=== PATIENT | female | born 1975 | race Caucasian/White ===

== ENCOUNTER 2016-08-09 18:13 | Emergency (ER) | payer BC ==
[~2016-08-09] VITALS: Ht 157.5 cm; Wt 88.5 kg
[~2016-08-09 18:13] MED LIST: ALBU8.5H8 INH; BECL8.7A5 INH; DEXL60CA3 PO; DULO60CA41 PO; HYDR-4100 PO; METH25VI29 IM; PRED10TA PO
--- NOTE | 2016-08-09 18:13 | NUR ---
Patient to ER bed 8 to gown for evaluation. Side rails up. Report given to RN.
[2016-08-09 18:15] VITALS: BP 122/71; PULSE 100; RESP 20; TEMP 98.1; O2SAT 98
[2016-08-09] MEDS ORDERED: fentaNYL CITRATE/PF 100 MCG/2 ML AMP IM ONE (19:00)
[2016-08-09] MEDS ORDERED: IPRATROPIUM/ALBUTEROL SULFATE 3 ML AMPUL.NEB INH ONE (19:00)
[2016-08-09] MEDS ORDERED: ONDANSETRON HCL 4 MG/2 ML VIAL IM ONE (19:00)
--- NOTE | 2016-08-09 19:05 | NUR ---
Pt states that she has been body aches, SOB, vomited all day, and lung congestion. Pt has bilateral wheeze in all lobes. Sating 97% on RA. Will continue to monitor. No other injuries or complaints mentioned/noted.
--- NOTE | 2016-08-09 19:35 | NUR ---
Pt states she is still SOB. Dr. Shelley made aware and ordered another breathing treatment.
[2016-08-09] MEDS ORDERED: IPRATROPIUM BROM 0.5 MG/2.5 ML VIAL.NEB (ATROVENT) IH ONE (20:30)
[2016-08-09] MEDS ORDERED: LevALBUTEROL HCL 1.25 MG/0.5 ML *CONC.* VIAL.NEB (XOPENEX CONC.) INH ONE (20:30)
[2016-08-09 20:45] VITALS: BP 114/66; PULSE 86; RESP 20; TEMP 98.1; O2SAT 100
--- NOTE | 2016-08-09 20:45 | NUR ---
Patient given written and verbal discharge instructions and verbalizes understanding. ER MD discussed with patient the results and treatment provided. Patient in stable condition. ID arm band removed. Rx of [place] and Zofran given. Patient educated on pain management and to follow up with PMD. Pain Scale 4/10. Opportunity for questions provided and answered.
== END 2016-08-09 20:45 | disposition home or self-care (01) ==
LOC: SED 18:13
DX: J45.901 Unspecified asthma with (acute) exacerbation (principal); A08.4 Viral intestinal infection, unspecified; Z88.5 Allergy status to narcotic agent; Z88.1 Allergy status to other antibiotic agents
CPT/HCPCS: 94640; 96372; 99284; J2405; J3010; J7030

== ENCOUNTER 2016-12-08 10:33 | Inpatient (IN) | payer BC, MEDICAID ==
[~2016-12-08] VITALS: Ht 157.5 cm; Wt 86.2 kg
[2016-12-08 10:50] VITALS: BP_SYST 107
[2016-12-08] MEDS ORDERED: NACL 0.9% 1,000 ML IV ONE (11:16)
[2016-12-08 11:31] LABS: BILIRUBIN,URINE NEGATIVE (NEGATIVE); BLOOD, URINE NEGATIVE (NEGATIVE); CLARITY/URINE CLEAR (CLEAR); COLOR,URINE YELLOW (YELLOW); GLUCOSE,URINE NEGATIVE (NEGATIVE); KETONES,URINE NEGATIVE (NEGATIVE); LEUKOCYTE ESTERASE ,URINE NEGATIVE (NEGATIVE); NITRITE, URINE NEGATIVE (NEGATIVE); PH,URINE 5.5 (5.0-8.0); PROTEIN URINE NEGATIVE (NEGATIVE); UROBILINOGEN,URINE 0.2 (0.2-1.0)
[2016-12-08 11:40] LABS: BASOPHILS % (AUTO) 0.4 % (0.0-2.0); EOSINOPHILS # (AUTO) 0.2 K/uL (0.0-0.4); EOSINOPHILS % (AUTO) 1.8 % (0.0-4.0); HEMATOCRIT 27.2 % (36-48); HEMOGLOBIN 8.3 g/dL (12.0-16.0); LYMPHOCYTES # (AUTO) 2.1 K/uL (1.0-5.5); LYMPHOCYTES % (AUTO) 22.5 % (20.5-51.5); MEAN CORPUSCULAR HEMOGLOBIN 21 pg (27-31); MEAN CORPUSCULAR HGB CONC 30 % (32-36); MEAN CORPUSCULAR VOLUME 70 fL (79.0-98.0); MONOCYTES # (AUTO) 0.6 K/uL (0.0-1.0); NEUTROPHILS # (AUTO) 6.3 K/uL (1.8-7.7); NEUTROPHILS % (AUTO) 68.3 % (40.0-70.0); PLATELET COUNT (AUTO) 406 K/uL (130-430); RED BLOOD CELL COUNT(AUTO) 3.92 MIL/uL (4.2-6.2); RED CELL DISTRIBUTION WIDTH 17.3 % (9.0-15.0); WHITE BLOOD COUNT (AUTO) 9.2 K/uL (4.8-10.8)
[2016-12-08 11:59] LABS: INR 0.9 (0.8-1.2); PROTHROMBIN TIME 9.7 SECS (9.5-12.5)
[2016-12-08 12:02] LABS: ALBUMIN 3.4 g/dL (3.4-4.8); CALCIUM 8.4 mg/dL (8.4-11.0); CREATININE 0.45 mg/dL (0.55-1.30); POTASSIUM 3.9 mmol/L (3.5-5.1); TOTAL BILIRUBIN 0.2 mg/dL (0.0-1.0); TOTAL PROTEIN, SERUM 7.4 g/dL (6.4-8.3)
[2016-12-08] MEDS ORDERED: ONDANSETRON HCL 4 MG/2 ML VIAL IVP ONE (12:45)
[2016-12-08] MEDS ORDERED: MORPHINE 2 MG/ML INJ. SYRINGE IVP ONE (12:45)
[2016-12-08] MEDS ORDERED: methotrexate SQ (13:35)
[2016-12-08] MEDS ORDERED: METHOT (13:35)
[2016-12-08] MEDS ORDERED: ALPR1TAB2 PO (13:35)
[2016-12-08] MEDS ORDERED: HYDR-4100 PO (13:35)
[2016-12-08] MEDS ORDERED: OXYC10TA71 PO (13:59)
[2016-12-08] MEDS ORDERED: ACETAMINOPHEN 325 MG TABLET PO PRN (14:00)
[2016-12-08] MEDS: D5NS 1,000 ML IV SCH (14:00)
[2016-12-08] MEDS ORDERED: METHOTREXATE IM SCH (14:00)
[2016-12-08] MEDS ORDERED: POTASSIUM CHLORIDE 10 MEQ TAB.PRT.SR PO PRN (14:00)
[2016-12-08] MEDS ORDERED: ZOLPIDEM TARTRATE 5 MG TABLET PO PRN (14:00)
[2016-12-08] MEDS ORDERED: ALBUTEROL MDI INHALATION 8 GM INH INH PRN (14:00)
[2016-12-08] MEDS ORDERED: MAGNESIUM SULFATE 50 ML IV PRN (14:00)
[2016-12-08] MEDS ORDERED: HYDROcodone/ACETAMIN 10-325 MG TAB PO PRN ×2 (14:00)
[2016-12-08] MEDS ORDERED: DOCUSATE SODIUM 100 MG CAPSULE PO PRN (14:00)
[2016-12-08] MEDS ORDERED: LORazepam 2 MG/ML VIAL IVP PRN (14:00)
[2016-12-08 14:10] VITALS: BP_SYST 103
[2016-12-08] MEDS ORDERED: ALBUTEROL SULFATE (PRN) 2.5 MG/3 ML VIAL.NEB INH (16:45)
[2016-12-08 16:56] VITALS: BP_SYST 112
[2016-12-08 17:02] VITALS: BP_SYST 112
[2016-12-08] MEDS: MORPHINE 2 MG/ML INJ. SYRINGE IVP PRN ×2 (17:07→22:04)
[2016-12-08 20:10] VITALS: BP_SYST 120
[2016-12-08] MEDS ORDERED: DIATR MEGLU/DIATRIZ SOD 30 ML SOLUTION PO ONE (20:36)
[2016-12-08] MEDS ORDERED: BECLOMETHASONE INH SCH (21:00)
[2016-12-08] MEDS: FERROUS SULFATE 325 MG TABLET.DR PO SCH (22:03)
[2016-12-08] MEDS: ONDANSETRON HCL 4 MG/2 ML VIAL IVP PRN (22:58)
[2016-12-09 00:27] VITALS: BP_SYST 107
[2016-12-09 03:17] VITALS: BP_SYST 104
[2016-12-09] MEDS: ONDANSETRON HCL 4 MG/2 ML VIAL IVP PRN ×2 (05:37→11:12)
[2016-12-09] MEDS: MORPHINE 2 MG/ML INJ. SYRINGE IVP PRN ×2 (05:38→11:13)
[2016-12-09] MEDS: D5NS 1,000 ML IV SCH (05:44)
[2016-12-09 06:32] LABS: BASOPHILS % (AUTO) 0.5 % (0.0-2.0); EOSINOPHILS # (AUTO) 0.2 K/uL (0.0-0.4); EOSINOPHILS % (AUTO) 2.8 % (0.0-4.0); HEMATOCRIT 26.5 % (36-48); HEMOGLOBIN 7.9 g/dL (12.0-16.0); LYMPHOCYTES # (AUTO) 2.1 K/uL (1.0-5.5); LYMPHOCYTES % (AUTO) 26.7 % (20.5-51.5); MEAN CORPUSCULAR HEMOGLOBIN 21 pg (27-31); MEAN CORPUSCULAR HGB CONC 30 % (32-36); MEAN CORPUSCULAR VOLUME 70 fL (79.0-98.0); MONOCYTES # (AUTO) 0.6 K/uL (0.0-1.0); MONOCYTES % (AUTO) 7.3 % (1.7-9.3); NEUTROPHILS # (AUTO) 5.1 K/uL (1.8-7.7); NEUTROPHILS % (AUTO) 62.7 % (40.0-70.0); PLATELET COUNT (AUTO) 399 K/uL (130-430); RED BLOOD CELL COUNT(AUTO) 3.78 MIL/uL (4.2-6.2)
[2016-12-09 06:50] LABS: CALCIUM 8.3 mg/dL (8.4-11.0); CREATININE 0.49 mg/dL (0.55-1.30); POTASSIUM 3.8 mmol/L (3.5-5.1)
[2016-12-09 07:00] LABS: RED CELL DISTRIBUTION WIDTH 17.1 % (9.0-15.0)
[2016-12-09 08:27] VITALS: BP_SYST 95
[2016-12-09] MEDS: FERROUS SULFATE 325 MG TABLET.DR PO SCH (09:00)
[2016-12-09] MEDS ORDERED: DULoxetine HCL 30 MG CAPSULE.DR (CYMBALTA) PO SCH (09:00)
[2016-12-09] MEDS ORDERED: FLUTICASONE FUROATE 200 MCG BLST.W.DEV INH SCH (09:00)
[2016-12-09] MEDS ORDERED: PREDNISONE 10 MG TABLET PO SCH (09:00)
[2016-12-09 12:10] VITALS: BP_SYST 97
[2016-12-09 16:02] VITALS: BP_SYST 100
[2016-12-09] MEDS ORDERED: metroNIDAZOLE 500 mg/NS 100 ML IV SCH (22:00)
== END 2016-12-09 16:00 | disposition left against medical advice (07) | DRG 245 ==
LOC: SED 10:33 → SMU 13:24
PROVIDERS: ADMIT General Practice; ATTEND General Practice
DX: K50.90 Crohn's disease, unspecified, without complications (principal); F11.20 Opioid dependence, uncomplicated; D50.9 Iron deficiency anemia, unspecified; E11.9 Type 2 diabetes mellitus without complications; E66.9 Obesity, unspecified; G89.4 Chronic pain syndrome; M06.9 Rheumatoid arthritis, unspecified; Z53.21 Procedure and treatment not carried out due to patient leaving prior to being seen by health care provider; M79.7 Fibromyalgia; Z79.899 Other long term (current) drug therapy; Z88.1 Allergy status to other antibiotic agents; Z88.8 Allergy status to other drugs, medicaments and biological substances; Z68.34 Body mass index [BMI] 34.0-34.9, adult
CPT/HCPCS: 36415; 80048; 80053; 81003; 82150-TC; 83690-TC; 83735-TC; 84703; 85025; 85610-TC; 85730-TC; 96361; 96374; 96375; 99285; J2270; J2405; J3490; J7042; J7512; Q9964

== ENCOUNTER 2017-05-31 06:18 | Emergency (ER) | payer MEDICAID ==
[~2017-05-31] VITALS: Ht 157.5 cm; Wt 82.1 kg
[~2017-05-31 06:18] MED LIST changes: +ALPR1TAB2 PO; +METHOT; +OXYC10TA71 PO; +methotrexate SQ
[2017-05-31 07:16] VITALS: BP_SYST 151
[2017-05-31 08:19] LABS: BILIRUBIN,URINE NEGATIVE (NEGATIVE); BLOOD, URINE 3+ (NEGATIVE); CLARITY/URINE CLOUDY (CLEAR); COLOR,URINE YELLOW (YELLOW); GLUCOSE,URINE NEGATIVE (NEGATIVE); KETONES,URINE TRACE (NEGATIVE); LEUKOCYTE ESTERASE ,URINE 3+ (NEGATIVE); NITRITE, URINE NEGATIVE (NEGATIVE); PROTEIN URINE NEGATIVE (NEGATIVE); UROBILINOGEN,URINE 0.2 (0.2-1.0)
[2017-05-31 08:27] LABS: BASOPHILS % (AUTO) 0.5 % (0.0-2.0); EOSINOPHILS # (AUTO) 0.1 K/uL (0.0-0.4); EOSINOPHILS % (AUTO) 2.4 % (0.0-4.0); HEMATOCRIT 33.2 % (36-48); HEMOGLOBIN 10.7 g/dL (12.0-16.0); LYMPHOCYTES % (AUTO) 45.2 % (20.5-51.5); MEAN CORPUSCULAR HEMOGLOBIN 26 pg (27-31); MEAN CORPUSCULAR HGB CONC 32 % (32-36); MEAN CORPUSCULAR VOLUME 81 fL (79.0-98.0); MONOCYTES # (AUTO) 0.3 K/uL (0.0-1.0); MONOCYTES % (AUTO) 6.5 % (1.7-9.3); NEUTROPHILS # (AUTO) 2.1 K/uL (1.8-7.7); NEUTROPHILS % (AUTO) 45.4 % (40.0-70.0); PLATELET COUNT (AUTO) 309 K/uL (130-430); RED BLOOD CELL COUNT(AUTO) 4.11 MIL/uL (4.2-6.2); RED CELL DISTRIBUTION WIDTH 18.6 % (9.0-15.0); WHITE BLOOD COUNT (AUTO) 4.5 K/uL (4.8-10.8)
[2017-05-31 08:43] LABS: CALCIUM 8.8 mg/dL (8.4-11.0); CREATININE 0.61 mg/dL (0.55-1.30); POTASSIUM 3.7 mmol/L (3.5-5.1)
--- NOTE | 2017-05-31 08:43 | NUR ---
Patient to ER bed 6 to gown for evaluation. Side rails up. Report given to Sabas DERAS.
[2017-05-31 08:50] LABS: ALBUMIN 3.6 g/dL (3.4-4.8); TOTAL BILIRUBIN 0.4 mg/dL (0.0-1.0)
--- NOTE | 2017-05-31 08:50 | NUR ---
Pt ambulated into ED c/o flu-like symptoms x3days. Pt states she has had cough, congestion, diarrhea, nasuea, dry heaving. bodyaches, chills. Pt laying in position on R side, shaking, blanket provided. No other injuries/complaints per pt/noted. Will continue to monitor. Addendum: 05/31/17 at 0900 by [email or web address] Pt reports having new onset 8/10 abd pain since this morning.
--- NOTE | 2017-05-31 09:00 | NUR ---
ER Dr. Brito at bedside examining patient.
[2017-05-31] MEDS: methylPREDNISolone SOD SUCC/PF 62.5 MG/ML VIAL IVP ONE (09:21)
[2017-05-31] MEDS ORDERED: MORPHINE SULFATE 10 MG/ML VIAL ONE (09:28)
[2017-05-31] MEDS: NACL 0.9% 1,000 ML IV ONE (09:35)
[2017-05-31] MEDS: ONDANSETRON HCL 4 MG/2 ML VIAL IVP ONE (09:35)
--- NOTE | 2017-05-31 09:35 | NUR ---
Medication administered. Pt tolerated well. No adverse reactions noted.
[2017-05-31] MEDS: MORPHINE 4 MG/ML INJ. SYRINGE IVP ONE (09:37)
[2017-05-31 09:55] LABS: BACTERIA,URINE MANY /HPF (None Seen); MUCUS,URINE 1+ /LPF (None Seen)
--- NOTE | 2017-05-31 10:20 | NUR ---
IV fluids discontinued. Pt tolerated well. No adverse reactions noted. Addendum: 06/17/17 at 1146 by [email or web address] Late entry
--- NOTE | 2017-05-31 10:24 | NUR ---
Patient given written and verbal discharge instructions and verbalizes understanding. ER MD Brito discussed with patient the results and treatment provided. Patient in stable condition. ID arm band removed. IV catheter removed intact and dressing applied, no active bleeding. Rx of Macrodantin given. Patient educated on pain management and to follow up with PMD. Pain Scale 0. Opportunity for questions provided and answered.
[2017-05-31 10:25] VITALS: BP_SYST 148
== END 2017-05-31 10:25 | disposition home or self-care (01) ==
LOC: SED 06:18
DX: K50.90 Crohn's disease, unspecified, without complications (principal); N39.0 Urinary tract infection, site not specified; J44.9 Chronic obstructive pulmonary disease, unspecified; M06.9 Rheumatoid arthritis, unspecified; Z90.49 Acquired absence of other specified parts of digestive tract; Z88.5 Allergy status to narcotic agent; Z88.8 Allergy status to other drugs, medicaments and biological substances
CPT/HCPCS: 36415; 80053; 81000; 81025; 83690; 85025; 87086; 96361; 96374; 96375; 99284; J2270; J2405; J2930; J7030

== ENCOUNTER 2017-09-19 11:20 | Outpatient (CLI) | payer BC | END 2017-09-19 19:55 | disposition home or self-care (01) | LOC: SRD 11:20 | PROVIDERS: ATTEND Internal Medicine | DX: Z01.818 Encounter for other preprocedural examination (principal); M06.9 Rheumatoid arthritis, unspecified; J44.9 Chronic obstructive pulmonary disease, unspecified; E11.9 Type 2 diabetes mellitus without complications; Z79.899 Other long term (current) drug therapy; Z87.891 Personal history of nicotine dependence | CPT/HCPCS: 71046-TC ==

== ENCOUNTER 2019-02-01 11:28 | Inpatient (IN) | payer OTHER, MEDICAID ==
[~2019-02-01] VITALS: Ht 157.5 cm; Wt 70.8 kg
[2019-02-01 11:28] VITALS: BP_SYST 125
[~2019-02-01 11:28] MED LIST changes: -DEXL60CA3 PO; +DEXL60CA4 PO; +OXYC10TA56 PO; -OXYC10TA71 PO
--- NOTE | 2019-02-01 11:28 | NUR ---
BROUGHT BACK TO BED #8 AND TRIAGED. REPORT GIVEN TO DELL
--- NOTE | 2019-02-01 11:30 | NUR ---
Pt brought by self, A&Ox4, pt presents to ER with bilateral leg pain and weakness, pt states she was told by yardage control operator 2 days ago her H&H was low,no N/V noted, denies chest pain ,pt is afebrile, VSS, respirations even and unlabored, pt denies bleeding, will continue to monitor.
--- NOTE | 2019-02-01 11:45 | NUR ---
Dr Pizano at bedside examining patient
[2019-02-01] MEDS ORDERED: MORPHINE 2 MG/ML INJ. SYRINGE IVP ONE (12:15)
[2019-02-01] MEDS ORDERED: NACL 0.9% 1,000 ML IV ONE ×2 (12:15→13:45)
[2019-02-01 12:32] LABS: BASOPHILS % (AUTO) 0.5 % (0.0-2.0); EOSINOPHILS # (AUTO) 0.1 K/uL (0.0-0.4); EOSINOPHILS % (AUTO) 1.3 % (0.0-4.0); HEMATOCRIT 29.5 % (36-48); HEMOGLOBIN 9.1 g/dL (12.0-16.0); LYMPHOCYTES # (AUTO) 0.7 K/uL (1.0-5.5); MEAN CORPUSCULAR HEMOGLOBIN 22 pg (27-31); MEAN CORPUSCULAR HGB CONC 31 % (32-36); MEAN CORPUSCULAR VOLUME 72 fL (79.0-98.0); MONOCYTES # (AUTO) 0.4 K/uL (0.0-1.0); MONOCYTES % (AUTO) 7.2 % (1.7-9.3); NEUTROPHILS # (AUTO) 4.9 K/uL (1.8-7.7); PLATELET COUNT (AUTO) 355 K/uL (130-430); RED CELL DISTRIBUTION WIDTH 17.2 % (9.0-15.0); WHITE BLOOD COUNT (AUTO) 6.1 K/uL (4.8-10.8)
[2019-02-01 13:00] LABS: CALCIUM 8.3 mg/dL (8.4-11.0); CREATININE 0.74 mg/dL (0.55-1.30); POTASSIUM 3.6 mmol/L (3.5-5.1)
[2019-02-01 13:03] LABS: PROTHROMBIN TIME 9.9 SECS (9.5-12.5)
[2019-02-01 13:15] LABS: ALBUMIN 3.3 g/dL (3.4-4.8); TOTAL BILIRUBIN 0.1 mg/dL (0.0-1.0)
[2019-02-01 13:44] LABS: BILIRUBIN,URINE NEGATIVE (NEGATIVE); BLOOD, URINE 3+ (NEGATIVE); CLARITY/URINE CLOUDY (CLEAR); COLOR,URINE YELLOW (YELLOW); GLUCOSE,URINE 3+ (NEGATIVE); KETONES,URINE NEGATIVE (NEGATIVE); LEUKOCYTE ESTERASE ,URINE NEGATIVE (NEGATIVE); NITRITE, URINE NEGATIVE (NEGATIVE); PH,URINE 5.5 (5.0-8.0); PROTEIN URINE 1+ (NEGATIVE); UROBILINOGEN,URINE 0.2 (0.2-1.0)
[2019-02-01] MEDS ORDERED: cefTRIAXone 1 GM IVPB PREMIX 50 ML IV ONE (13:45)
[2019-02-01 14:02] LABS: BACTERIA,URINE FEW /HPF (None Seen); RBC,URINE >100 /HPF (0-3); WBC,URINE 0-3 /HPF (0-3)
[2019-02-01 14:03] LABS: MUCUS,URINE None Seen /LPF (None Seen)
--- NOTE | 2019-02-01 14:24 | NUR ---
[place] of care received, pt A&Ox4, VSS, respirations even and unlabored, no N/V noted, cap refill <3.
[2019-02-01] MEDS ORDERED: GABA300S PO (15:17)
--- NOTE | 2019-02-01 15:18 | NUR ---
Medication reconciliation completed with information provided by Patient. Any prior medication reconciliation on file was reviewed and corrected.
--- NOTE | 2019-02-01 15:25 | NUR ---
Patient will be admitted to care of Dr Reeves. Admitted to medsurg unit. Will go to room 124a . Belongings list completed. Summary report printed. Report will be given at bedside.
[2019-02-01 15:40] VITALS: BP_SYST 115
--- NOTE | 2019-02-01 15:40 | NUR ---
Admission notes: Received pt from Marlo, pt is aaox4, with diagnosis of Possible UTI, vitals wnl, no fever, safety precaution in place, bed alarm on ,call light in reach, pt encouraged to call for assist and pain meds and any concerns. will endorse to Nurse Durham.
--- NOTE | 2019-02-01 15:45 | NUR ---
PATIENT AAOX 4. LUNGS ARE CLEAR. BREATHING EVEN AND UNLABORED. VERBALIZED HAS PAIN ON GENERALIZED PAIN. HAS SALINE RT ARM #20. PATENT/DRY. ABDOMEN SOFT AND NON DISTENDED. VERBALIZED HAD BOWEL MOVEMENT 01/31/19. BED IN LOW POSITION, ALARMED AND LOCKED. CALL LIGHTS WITHIN REACH. INSTRUCTED TO CALL FOR ASSISTANCE. AND TO INFORMED DR WOOD FOR PAIN MEDICATION.
[2019-02-01 15:50] VITALS: BP_SYST 115
[2019-02-01] MEDS ORDERED: LEVO150T PO (16:32)
--- NOTE | 2019-02-01 17:35 | NUR ---
DR WOOD CAME AND EVALUATE THE PATIENT.
[2019-02-01] MEDS ORDERED: ACETAMINOPHEN 325 MG TABLET PO PRN (17:45)
--- NOTE | 2019-02-01 18:20 | NUR ---
CALLED PHARMACY AFTER HOUR TO PUT IT ON EMAR FOR MORPHINE 2 MG IV
--- NOTE | 2019-02-01 18:21 | NUR ---
AWAITING TO CALL BACK.
--- NOTE | 2019-02-01 18:45 | NUR ---
CALL [facility]IN PHARMACY AFTER HOURS [phone]. AWAITING TO CALL BACK
--- NOTE | 2019-02-01 19:15 | NUR ---
OPENING NOTE Bedside report received from dayshift nurse. Patient received lying in bed complaining of 8/10 bilateral lower extremity pain. Reposition ineffective. PRN medication to be administered. Breathing even and unlabored. Call light with patient. Will continue to monitor.
--- NOTE | 2019-02-01 19:15 | NUR ---
ENDORSED TO INCOMING NURSE JOHANA DERAS.
[2019-02-01 20:00] VITALS: BP_SYST 120
[2019-02-01] MEDS: MORPHINE 2 MG/ML INJ. SYRINGE IVP PRN (20:11)
--- NOTE | 2019-02-01 20:11 | NUR ---
NEW IV SITE/PAIN MED New IV site started at left AC, 22 gauge. Patient tolerated well. Previous IV site DC'ed, catheter fully intact. Pain medication administered per PRN order. Will continue to monitor.
[2019-02-01] MEDS ORDERED: KCL 20 mEq in D5NS 1000 mL 1,000 ML IV ONE (21:44)
--- NOTE | 2019-02-01 22:00 | NUR ---
ROUNDS Patient in bed, watching TV. No signs discomfort noted. Chest rise and fall even bilaterally. IVF infusing well. IV site patent, no signs of infiltration or infection noted. Call light with patient. Will continue to monitor.
[2019-02-01] MEDS: GABAPENTIN 300 MG CAPSULE PO SCH (22:41)
[2019-02-01] MEDS: KCL 20 mEq in D5NS 1000 mL 1,000 ML IV SCH (22:41)
[2019-02-02] VITALS: BP_SYST 122
--- NOTE | 2019-02-02 | NUR ---
PAIN Patient complained of 7/10 bilateral lower extremity pain. PRN medication to be administered. Will continue to monitor.
[2019-02-02] MEDS: MORPHINE 2 MG/ML INJ. SYRINGE IVP PRN ×5 (00:14→20:17)
--- NOTE | 2019-02-02 02:00 | NUR ---
ROUNDS Patient sleeping at this time. No signs of discomfort noted. Chest rise and fall even bilaterally. IVF infusing well. Call light with patient. Will continue to monitor.
[2019-02-02] MEDS: KCL 20 mEq in D5NS 1000 mL 1,000 ML IV SCH ×2 (04:15→14:16)
[2019-02-02 05:58] LABS: BASOPHILS % (AUTO) 0.7 % (0.0-2.0); EOSINOPHILS # (AUTO) 0.1 K/uL (0.0-0.4); EOSINOPHILS % (AUTO) 2.7 % (0.0-4.0); HEMATOCRIT 24.6 % (36-48); HEMOGLOBIN 7.7 g/dL (12.0-16.0); LYMPHOCYTES # (AUTO) 1.6 K/uL (1.0-5.5); LYMPHOCYTES % (AUTO) 28.4 % (20.5-51.5); MEAN CORPUSCULAR HEMOGLOBIN 23 pg (27-31); MEAN CORPUSCULAR HGB CONC 31 % (32-36); MEAN CORPUSCULAR VOLUME 72 fL (79.0-98.0); MONOCYTES # (AUTO) 0.5 K/uL (0.0-1.0); MONOCYTES % (AUTO) 8.5 % (1.7-9.3); NEUTROPHILS # (AUTO) 3.3 K/uL (1.8-7.7); NEUTROPHILS % (AUTO) 59.7 % (40.0-70.0); PLATELET COUNT (AUTO) 308 K/uL (130-430); RED BLOOD CELL COUNT(AUTO) 3.42 MIL/uL (4.2-6.2); WHITE BLOOD COUNT (AUTO) 5.5 K/uL (4.8-10.8)
[2019-02-02] MEDS: LEVOTHYROXINE SODIUM 0.15 MG TABLET PO SCH (06:08)
[2019-02-02 06:15] LABS: CALCIUM 8.2 mg/dL (8.4-11.0); CREATININE 0.59 mg/dL (0.55-1.30); POTASSIUM 4.4 mmol/L (3.5-5.1)
--- NOTE | 2019-02-02 06:45 | NUR ---
CLOSING NOTES Patient in bed sleeping at this time. No s/s of acute distress noted. Breathing even and unlabored. IVF infusing well, IV site patent, no signs of infiltration or infection noted. All needs met throughout shift. Will continue to monitor until patient care is endorsed to oncoming dayshift nurse. Fall and safety precautions maintained.
[2019-02-02 07:15] LABS: TOTAL IRON BIND. CAPACITY 298 ug/dL (250-450)
[2019-02-02 08:00] VITALS: BP_SYST 123
[2019-02-02] MEDS: GABAPENTIN 300 MG CAPSULE PO SCH ×2 (09:26→20:49)
[2019-02-02 12:00] VITALS: BP_SYST 96
[2019-02-02] MEDS: cefTRIAXone 1 GM in D5W 50 ML IV SCH (14:16)
[2019-02-02 17:01] VITALS: BP_SYST 103
--- NOTE | 2019-02-02 19:45 | NUR ---
OPENING NOTES RECEIVED PATIENT IN BED VISITOR AT BEDSIDE. BREATHING UNLABORED ON ROOM AIR. IVF INFUSING WITH IV LINE INTACT. BED IN LOWEST LOCKED POSITION. CALL LIGHT WITH IN REACH.
[2019-02-02 20:12] VITALS: BP_SYST 105
[2019-02-02] MEDS ORDERED: SOD FERRIC GLUC COMPLEX/SUC 62.5 MG/5 ML VIAL (FERRLECIT) IV ONE (20:17)
--- NOTE | 2019-02-02 20:17 | NUR ---
PAIN M GT PATIENT MEDICATED WITH MORPHINE FOR C/O GENERALIZED PAIN 12/05. VITAL SIGNS STABLE.
[2019-02-02] MEDS: SOD FERRIC GLUC COMPLEX/SUC 125 MG in NS 100 ML IV SCH (20:50)
--- NOTE | 2019-02-02 20:50 | NUR ---
IRON NEW ORDER FOR FERRLECIT INFUSION STARTED ORDERED. POSSIBLE SIDE EFFECTS DISCUSSED WITH PATIENT. IV LINE PATENT.
[2019-02-03 01:32] VITALS: BP_SYST 125
--- NOTE | 2019-02-03 01:39 | NUR ---
ROUNDS PATIENT RESTING IN BED. BREATHING UNLABORED ON ROOM AIR. IVF INFUSING. CALL LIGHT WITH IN REACH.
[2019-02-03] MEDS: KCL 20 mEq in D5NS 1000 mL 1,000 ML IV SCH ×3 (01:57→22:27)
[2019-02-03] MEDS: MORPHINE 2 MG/ML INJ. SYRINGE IVP PRN ×5 (02:04→20:13)
--- NOTE | 2019-02-03 02:04 | NUR ---
PAIN MGT PATIENT MEDICATED WITH MORPHINE ORDERED FOR C/O GENERALIZED PAIN. VITAL SIGNS STABLE. CALL LIGHT WITH IN REACH.
[2019-02-03] MEDS ORDERED: KCL 20 mEq in D5NS 1000 mL 1,000 ML IV ONE (02:06)
--- NOTE | 2019-02-03 04:00 | NUR ---
ROUNDS PATIENT RESTING IN BED. NO DISTRESS NOTED.
[2019-02-03] MEDS: LEVOTHYROXINE SODIUM 0.15 MG TABLET PO SCH (06:40)
--- NOTE | 2019-02-03 06:53 | NUR ---
CLOSING NOTES PATIENT RESTING IN BED. BREATHING UNLABORED ON ROOM AIR. IVF INFUSING WITH IV LINE INTACT AND PATENT. PATIENT NEEDS ATTENDED. BED IN LOWEST LOCKED POSITION. CALL LIGHT WITH IN REACH.
--- NOTE | 2019-02-03 07:25 | NUR ---
OPENING NOTES Received patient lying comfortably in her bed, alert, awake and verbally responsive. Respiration even and unlabored. Able to verbalize needs and concerns. Complained of bilateral legs pain, rated as 8/10, aching and requested for morphine. Able to move both legs. Discussed with patient the plan of care and importance of using call light and fall precaution due to medication morphine, patient verbalized understanding. Bed alarm on, bed at lowest position. Fall precaution observed. Call light within the reach. Will continue to monitor.
[2019-02-03] MEDS: GABAPENTIN 300 MG CAPSULE PO SCH ×2 (08:10→20:13)
[2019-02-03] MEDS: DULoxetine HCL 30 MG CAPSULE.DR (CYMBALTA) PO SCH (08:10)
[2019-02-03 09:18] VITALS: BP_SYST 114
--- NOTE | 2019-02-03 09:43 | NUR ---
RN ROUND Patient lying comfortably in her bed with respiration even and unlabored. Still noted with bilateral legs discomfort but per patient its tolerable. Reminded patient to use call light when going to the restroom, patient verbalized understanding. Call light within the reach.
--- NOTE | 2019-02-03 11:48 | NUR ---
Morphine Given Patient complained of 7/10 aching pain to her bilateral legs and requesting for morphine, ,morphine given, well tolerated. Patient reminded not to get up by herself due to fall risk, does not want her bed alarm on, notified regarding risks and benefits. Call light within the reach. Will continue to monitor.
[2019-02-03 12:59] VITALS: BP_SYST 115
--- NOTE | 2019-02-03 13:30 | NUR ---
Dietitian Recommendations * Recommend continuing regular diet * RD provided UTI/Crohn's Kate GLEASON LP, RD Please refer to Nutrition Assessment for details. Addendum: 02/03/19 at [address] Amended: Links added.
--- NOTE | 2019-02-03 13:49 | NUR ---
Rn ROUND Patient remain to be alert, awake and verbally responsive. Resting well. Call light within the reach.
[2019-02-03] MEDS: cefTRIAXone 1 GM in D5W 50 ML IV SCH (14:33)
--- NOTE | 2019-02-03 15:01 | NUR ---
RN ROUND Patient remain to be alert, awake and verbally responsive. Able to verbalize needs and concerns. Offered help but patient does not need anything right now. Call light within the reach. Will continue to monitor.
[2019-02-03 15:46] VITALS: BP_SYST 117
[2019-02-03 16:00] VITALS: BP_SYST 121
--- NOTE | 2019-02-03 17:41 | NUR ---
RN ROUND Patient resting well. Remain to be alert, awake and verbally responsive. IVF infusing well. Call light within easy reach. Will continue to monitor.
[2019-02-03] MEDS: SOD FERRIC GLUC COMPLEX/SUC 125 MG in NS 100 ML IV SCH (18:17)
--- NOTE | 2019-02-03 18:49 | NUR ---
Closing Notes Patient currently lying comfortably in her be with respiration even and unlabored. remain to be alert, awake and verbally responsive. IVF infusing well. Call light within the reach. Will endorse to next shift.
--- NOTE | 2019-02-03 19:15 | NUR ---
OPENING NOTES RECEIVED PATIENT IN BED AOO X4. BREATHING UNLABORED ON ROOM AIR. BED IN LOWEST LOCKED POSITION. CALL LIGHT WITH IN REACH.
[2019-02-03 20:09] VITALS: BP_SYST 119
--- NOTE | 2019-02-03 20:13 | NUR ---
PAIN MGT PATIENT MEDICATED WITH MORPHINE FOR C/O GENERALIZED PAIN. VITAL SIGNS STABLE.
[2019-02-03] MEDS: FAMOTIDINE 20 MG TABLET PO SCH (21:15)
[2019-02-03] MEDS ORDERED: FAMOTIDINE PF 20 MG/2 ML VIAL IVP ONE (21:15)
--- NOTE | 2019-02-03 22:26 | NUR ---
ACIDITY PATIENT MEDICATED WITH PEPCID IV NEW ORDER FOR PATIENT C/O ACIDITY.
--- NOTE | 2019-02-04 00:30 | NUR ---
ROUNDS PATIENT RESTING IN BED. NO DISTRESS NOTED. IVF INFUSING. VITAL SIGNS STABLE.
[2019-02-04 01:34] VITALS: BP_SYST 117
[2019-02-04] MEDS: MORPHINE 2 MG/ML INJ. SYRINGE IVP PRN ×5 (03:44→21:44)
--- NOTE | 2019-02-04 03:44 | NUR ---
PAIN MGT PATIENT MEDICATED WITH MORPHINE FOR C/O GENERALIZED PAIN 12/05.
[2019-02-04] MEDS: LEVOTHYROXINE SODIUM 0.15 MG TABLET PO SCH (06:17)
--- NOTE | 2019-02-04 06:40 | NUR ---
CLOSING NOTES PATIENT RESTING IN BED. NO DISTRESS NOTED. IVF INFUSING. PATIENT NEEDS ATTENDED. CALL LIGHT WITH IN REACH.
[2019-02-04 07:57] VITALS: BP_SYST 103
--- NOTE | 2019-02-04 08:00 | NUR ---
Note Pt sitting up in bed attempting to eat her breakfast. No SOB/resp distress noted at this time. IV in left AC intact and patent infusing IVF's well at this time. No needs noted at this time. Call light within reach.
[2019-02-04] MEDS: KCL 20 mEq in D5NS 1000 mL 1,000 ML IV SCH ×2 (08:27→17:20)
[2019-02-04] MEDS: GABAPENTIN 300 MG CAPSULE PO SCH ×2 (09:11→21:43)
[2019-02-04] MEDS: DULoxetine HCL 30 MG CAPSULE.DR (CYMBALTA) PO SCH (09:12)
[2019-02-04] MEDS: FAMOTIDINE 20 MG TABLET PO SCH ×2 (09:12→21:43)
--- NOTE | 2019-02-04 11:15 | NUR ---
Note Pt resting in bed - Morphine 2mg IVP given at 0835am for pain of 12/05. Pt was at sink in room doing self hygiene care and denies any needs at this time. IVF's infusing well at this time. Call light within reach.
[2019-02-04 11:16] VITALS: BP_SYST 114
[2019-02-04] MEDS: cefTRIAXone 1 GM in D5W 50 ML IV SCH (13:28)
[2019-02-04 15:23] VITALS: BP_SYST 101
--- NOTE | 2019-02-04 16:15 | NUR ---
Note Pt resting in bed with IVF's infusing well. Pt ambulates in room and to restroom independently. Pt speaking to family/friends on cellphone frequently. No needs noted at this time. Call light within reach.
[2019-02-04] MEDS: SOD FERRIC GLUC COMPLEX/SUC 125 MG in NS 100 ML IV SCH (17:21)
--- NOTE | 2019-02-04 18:30 | NUR ---
Note Pt resting in bed after eating her dinner. Pain tolerable at this time. IVF's infusing well through left AC IV site. Pt was checked on q1' and PRN all shift for needs and care. No SOB/resp distress or severe pain/discomfort was noted at this time. No needs noted at this time. Call light within reach.
--- NOTE | 2019-02-04 19:36 | NUR ---
Opening Note Pt in bed, AAO. ON RA, no s/s of distress or discomfort noted. Pt has IVF infusing. IV site leaking. Repositioned and IV dressing changed. No s/s of infiltration noted. Pt able to make needs known, no request at this time. Bed locked in lowest position, call light in reach, and safety precautions in place. Will continue to monitor.
[2019-02-04 20:00] VITALS: BP_SYST 101
--- NOTE | 2019-02-04 21:45 | NUR ---
Medication administered, and Pt educated on medication action and side effects. Pt verbalized understanding. NO other request at this time. Pt states she desires to sleep at this time. Will continue to monitor.
--- NOTE | 2019-02-04 23:11 | NUR ---
IV RE-INSERTION: Complaining of leaking to IV site. Restarted on left forearm 22 gauge. Flushes easily with good blood return. Will observe for any signs of infiltration.
[2019-02-05 00:05] VITALS: BP_SYST 111
[2019-02-05] MEDS: KCL 20 mEq in D5NS 1000 mL 1,000 ML IV SCH ×3 (02:15→22:49)
[2019-02-05] MEDS: MORPHINE 2 MG/ML INJ. SYRINGE IVP PRN ×4 (03:15→20:19)
--- NOTE | 2019-02-05 03:15 | NUR ---
Patient moved to room 125B/Pain meds Patient and patient belongings moved to room 125B. Patient complains of generalized pain. PRN pain medication given. Educated the patient the action and side effects of medications. Patient verbalized understanding and tolerated well. No signs of allergic reaction noted. Patient provided with ice pack. No other needs. call light with the patient. Safety precautions in place.
[2019-02-05 05:10] LABS: FOLATE (FOLIC ACID) 6.3 ng/mL (>3.0)
--- NOTE | 2019-02-05 05:24 | NUR ---
Pt in bed in and out of sleep. Pt still feeling generalized pain intermittently. PRN medication given when asked. No s/s of distress noted. No c/o of pain at this time. Will continue to monitor.
[2019-02-05] MEDS: LEVOTHYROXINE SODIUM 0.15 MG TABLET PO SCH (06:25)
--- NOTE | 2019-02-05 06:42 | NUR ---
Closing Note Pt in bed, remains AAO. IVF infusing. Iv site C/D/I. No s/s of infiltration noted. Morning Medications administered. Pt educated on action and side effects of medication. Pt verbalized understanding. All needs met. Pt not requesting any pain medication at this time. Bed locked in lowest position, call light in reach, and safety precautions in place. Will endorse to oncoming RN.
[2019-02-05 07:17] LABS: BASOPHILS % (AUTO) 0.8 % (0.0-2.0); EOSINOPHILS # (AUTO) 0.2 K/uL (0.0-0.4); EOSINOPHILS % (AUTO) 4.2 % (0.0-4.0); HEMOGLOBIN 7.6 g/dL (12.0-16.0); LYMPHOCYTES # (AUTO) 1.4 K/uL (1.0-5.5); LYMPHOCYTES % (AUTO) 31.2 % (20.5-51.5); MEAN CORPUSCULAR HEMOGLOBIN 23 pg (27-31); MEAN CORPUSCULAR HGB CONC 32 % (32-36); MEAN CORPUSCULAR VOLUME 72 fL (79.0-98.0); MONOCYTES # (AUTO) 0.4 K/uL (0.0-1.0); MONOCYTES % (AUTO) 8.4 % (1.7-9.3); NEUTROPHILS # (AUTO) 2.5 K/uL (1.8-7.7); NEUTROPHILS % (AUTO) 55.4 % (40.0-70.0); PLATELET COUNT (AUTO) 292 K/uL (130-430); RED BLOOD CELL COUNT(AUTO) 3.34 MIL/uL (4.2-6.2); RED CELL DISTRIBUTION WIDTH 17.2 % (9.0-15.0); WHITE BLOOD COUNT (AUTO) 4.5 K/uL (4.8-10.8)
--- NOTE | 2019-02-05 07:25 | NUR ---
Am Rounds: Patient sleeping during rounds. no acute distress. Call light with in reach.Bed locked at lowest position. No needs this time.
[2019-02-05 07:39] LABS: CALCIUM 8.5 mg/dL (8.4-11.0); CREATININE 0.68 mg/dL (0.55-1.30); POTASSIUM 4.5 mmol/L (3.5-5.1)
[2019-02-05 08:00] VITALS: BP_SYST 105
[2019-02-05] MEDS: FAMOTIDINE 20 MG TABLET PO SCH ×2 (08:17→20:30)
[2019-02-05] MEDS: DULoxetine HCL 30 MG CAPSULE.DR (CYMBALTA) PO SCH (08:17)
[2019-02-05] MEDS: GABAPENTIN 300 MG CAPSULE PO SCH ×2 (08:17→20:30)
--- NOTE | 2019-02-05 10:43 | NUR ---
RN ROUNDS: NOT IN ANY DISTRESS. NO NEEDS THIS TIME.
[2019-02-05 12:26] VITALS: BP_SYST 100
--- NOTE | 2019-02-05 12:31 | NUR ---
RN ROUNDS: NO ACUTE DISTRESS. PATIENT EATING DURING ROUNDS.
[2019-02-05] MEDS ORDERED: DIPHENHYDRAMINE INJ 50 MG/ML VIAL IVP PRN (14:00)
[2019-02-05] MEDS: cefTRIAXone 1 GM in D5W 50 ML IV SCH (14:40)
--- NOTE | 2019-02-05 14:43 | NUR ---
PAIN MEDS: C/O GENERALIZED PAIN AND DUE IV MORPHINE GIVEN PER REQUEST,WITH NO PROBLEM.
--- NOTE | 2019-02-05 14:56 | NUR ---
DC PLANNING: DISCUSSED WITH DR. WOOD DC PLAN FOR PATIENT. STATED PATIENT'S HGB AND HCT IS LOW TODAY. WILL BE TRANSFUSING 2 UNIT OF PRBC. WILL MONITOR H&H AND WILL POSSIBLE DC HOME TOMORROW IF STABLE.
[2019-02-05] MEDS: SOD FERRIC GLUC COMPLEX/SUC 125 MG in NS 100 ML IV SCH (15:41)
--- NOTE | 2019-02-05 16:10 | NUR ---
RN ROUNDS: RESTING. NOT IN ANY DISTRESS.
[2019-02-05 16:25] VITALS: BP_SYST 110
[2019-02-05 17:15] VITALS: BP_SYST 122
--- NOTE | 2019-02-05 18:25 | NUR ---
RN ROUNDS: NO UNTOWARD MANIFESTATIONS WHILE ON BLOOD TRANSFUSION DURING ROUNDS. PATIENT SLEEPING.
[2019-02-05 20:05] VITALS: BP_SYST 128
--- NOTE | 2019-02-05 20:15 | NUR ---
IV PLACEMENT: # 22 gauge angiocath placed to LEFT HAND. Use of asceptic technique. Opsite placed over site. Blood return noted.Flushed with 10 cc of normal saline. No evidence of infiltration noted. Patient tolerated WELL.
--- NOTE | 2019-02-05 20:19 | NUR ---
PAIN/MORPHINE PT REPORTING SEVERE GENERALIZED PAIN. MORPHINE 2 MG IVP ADMINISTERED. MEDICATION ACTION AND POTENTIAL SIDE EFFECTS EXPLAINED. PT VERBALIZED UNDERSTANDING. WILL MONITOR.
--- NOTE | 2019-02-05 20:35 | NUR ---
BT INITIATION: 2nd Unit Consent signed per agreeing to administration of blood. Blood has been type and crossmatched. Blood sent from blood bank. Information on unit of blood checked against patient wristband at bedside by two nurses. All information matches. Patient or responsible republican informed of potential complications associated with blood transfusion. Informed of possible transfusion reaction symptoms. Aware of need to notify nurse at once of itching, shortness of breath, flushing, feeling of impending doom, or other symptoms not previously present. Vital signs taken within 5 minutes prior to initiation of transfusion. RN will remain with patient for first 15 minutes of transfusion at which time vital signs will be re-assessed.
--- NOTE | 2019-02-05 22:10 | NUR ---
BLOOD TRANSFUSION END NO S/S OF DISTRESS. VSS. NO SIGNS OF ADVERSE REACTION. WILL MONITOR.
[2019-02-06] VITALS (7 sets, daily range): BP systolic 99–146
[2019-02-06] MEDS: MORPHINE 2 MG/ML INJ. SYRINGE IVP PRN ×5 (00:30→19:27)
--- NOTE | 2019-02-06 00:30 | NUR ---
PAIN/MORPHINE PT REQUESTING MORPHINE FOR SEVERE GENERALIZED PAIN. MORPHINE 2 MG IVP ADMINISTERED. PT TOLERATED WELL. NO S/S OF DISTRESS. SAFETY MAINTAINED. WILL MONITOR.
--- NOTE | 2019-02-06 02:11 | NUR ---
RESTING PT RESTING IN BED WITH NO S/S OF ACUTE DISTRESS. BREATHING IS UNLABORED TO ROOM AIR. IVF ARE INFUSING AT ORDERED RATE. NO SIGN OF PAIN OR DISCOMFORT, NO FACIAL GRIMACE. SAFETY AND FALL PRECAUTIONS ARE IN PLACE. WILL MONITOR.
--- NOTE | 2019-02-06 05:14 | NUR ---
PAIN/MORPHINE PT REQUESTING MORPHINE FOR SEVERE GENERALIZED PAIN. MORPHINE 2 MG IVP ADMINISTERED. PT TOLERATED WELL. NO S/S OF DISTRESS. SAFETY MAINTAINED. WILL MONITOR.
[2019-02-06] MEDS: LEVOTHYROXINE SODIUM 0.15 MG TABLET PO SCH (05:56)
[2019-02-06 06:02] LABS: BASOPHILS % (AUTO) 0.7 % (0.0-2.0); EOSINOPHILS # (AUTO) 0.2 K/uL (0.0-0.4); EOSINOPHILS % (AUTO) 4.3 % (0.0-4.0); HEMATOCRIT 29.9 % (36-48); HEMOGLOBIN 9.7 g/dL (12.0-16.0); LYMPHOCYTES # (AUTO) 1.9 K/uL (1.0-5.5); LYMPHOCYTES % (AUTO) 34.5 % (20.5-51.5); MEAN CORPUSCULAR HEMOGLOBIN 24 pg (27-31); MEAN CORPUSCULAR HGB CONC 33 % (32-36); MONOCYTES # (AUTO) 0.4 K/uL (0.0-1.0); MONOCYTES % (AUTO) 7.5 % (1.7-9.3); NEUTROPHILS # (AUTO) 2.9 K/uL (1.8-7.7); PLATELET COUNT (AUTO) 324 K/uL (130-430); RED BLOOD CELL COUNT(AUTO) 4.03 MIL/uL (4.2-6.2); RED CELL DISTRIBUTION WIDTH 18.3 % (9.0-15.0); WHITE BLOOD COUNT (AUTO) 5.5 K/uL (4.8-10.8)
[2019-02-06 06:09] LABS: CREATININE 0.63 mg/dL (0.55-1.30)
[2019-02-06 07:13] LABS: CALCIUM 8.5 mg/dL (8.4-11.0)
[2019-02-06 07:19] LABS: MEAN CORPUSCULAR VOLUME 74 fL (79.0-98.0)
--- NOTE | 2019-02-06 07:33 | NUR ---
CLOSING NOTES PATIENT RESTING IN BED. NO DISTRESS NOTED. IVF INFUSING. PATIENT NEEDS ATTENDED. CALL LIGHT WITH IN REACH. SAFETY MAINTAINED. CARE ENDORSED TO DAY SHIFT RN.
--- NOTE | 2019-02-06 08:00 | NUR ---
RN INITIAL NOTES RECEIVED PATIENT IN BED ALERT AWAKE AND VERBAL NO DISTRESS REPS EVEN AND UNLABORED EXPLAINED AND UNDERSTAND PLAN OF CARE PATIENT HAD BLOOD TRANSFUSION LAST NIGHT WITH 2 UNITS PATIENT VERBALIZED SHE FELT BETTER TODAY
[2019-02-06] MEDS: KCL 20 mEq in D5NS 1000 mL 1,000 ML IV SCH ×2 (09:20→17:43)
[2019-02-06] MEDS: GABAPENTIN 300 MG CAPSULE PO SCH (09:22)
[2019-02-06] MEDS: DULoxetine HCL 30 MG CAPSULE.DR (CYMBALTA) PO SCH (09:22)
[2019-02-06] MEDS: FAMOTIDINE 20 MG TABLET PO SCH ×2 (09:22→19:27)
--- NOTE | 2019-02-06 10:00 | NUR ---
ASLEEP PATIENT NOTED SLEEPING AND NO SIGN OF DISTRESS PATIENT WAS GIVEN MORPHINE IV AND ITS EFFECTIVE
--- NOTE | 2019-02-06 13:00 | NUR ---
PAIN PATIENT GIVEN MEDS FOR PAIN AND NO DISTRESS PATIENT AT BEDSIDE
[2019-02-06] MEDS: cefTRIAXone 1 GM in D5W 50 ML IV SCH (13:57)
[2019-02-06] MEDS: SOD FERRIC GLUC COMPLEX/SUC 125 MG in NS 100 ML IV SCH (17:35)
--- NOTE | 2019-02-06 17:49 | NUR ---
end rn notes patient in bed not in any distress will cont with pain mgt ,patient kept self rested will endorse care to next shift Addendum: 02/06/19 at 1901 by Annemarie Nichols RN DR WOOD CAME AND DC ORDER CAME AND SEEN EVAL PATIENT WITH DC ORDER AND RX GIVEN BY FOR HOME MEDS WILL ENDORSE TO NEXT SHIFT TO FOLLOW THRU WITH THE DC PROCESS PATIENT HAS NO DISTRESS AT THIS TIME AWARE SHE WILL BE GOING HOME DAVID
[2019-02-06] MEDS ORDERED: PREN-58 PO (18:55)
--- NOTE | 2019-02-06 20:00 | NUR ---
PM SHIFT ASSESSMENT Received patient sitting up in bed, aox4, vitals stable, c/o of generalized pain and gerd, medicated with morphine 2 mg IVP for pain and administered pepcid 1 tab for gerd, educated on side effects of each medication, patient verbalized understanding, IV line to right hand intact and patent, IVF infusing, patient will be discharged home tonight, awaiting daughter to pick her up. Fall and safety measures in place, call light within reach.
--- NOTE | 2019-02-06 20:29 | NUR ---
IV Patient given transitional papers for home, educated on new medication prescription, prescription given to patient, IV line removed to right hand, no active bleeding noted. Covered with dressing and tape.
--- NOTE | 2019-02-06 21:18 | NUR ---
DISCHARGE Patient in stable condition, denies any pain or discomfort at this time, all belongings sent home with patient, wheelchair to front of hospital, accompanied by FIRST AID NURSE, left in private car accompanied by daughter.
== END 2019-02-06 19:12 | disposition home or self-care (01) | DRG 812 ==
LOC: SED 11:28 → SMU 15:04
PROVIDERS: ADMIT Family Medicine; ATTEND Family Medicine
PROC: 30233N1 Transfusion of Nonautologous Red Blood Cells into Peripheral Vein, Percutaneous Approach (ICD-10-PCS; principal; 2019-02-05)
DX: D50.9 Iron deficiency anemia, unspecified (principal); N39.0 Urinary tract infection, site not specified; E87.2 Acidosis; M79.7 Fibromyalgia; J44.9 Chronic obstructive pulmonary disease, unspecified; R31.9 Hematuria, unspecified; E03.9 Hypothyroidism, unspecified; K21.9 Gastro-esophageal reflux disease without esophagitis; F32.9 Major depressive disorder, single episode, unspecified; Z85.850 Personal history of malignant neoplasm of thyroid; Z98.84 Bariatric surgery status; Z88.5 Allergy status to narcotic agent; Z91.041 Radiographic dye allergy status; Z79.899 Other long term (current) drug therapy
CPT/HCPCS: 36415; 71045; 80048; 80053; 81000-TC; 82607; 82728; 82746; 83540-TC; 83550-TC; 83605; 85025; 85610-TC; 85730-TC; 86886; 86900; 86901; 86920; 87040-TC; 87086; 93005; 96361; 96365; 96375; 99291; J0696; J1200; J2270; J2916; J3490; J7030; J7060; P9021

== ENCOUNTER 2020-07-27 11:20 | Observation (INO) | payer OTHER, MEDICAID, SELFPAY ==
[~2020-07-27] VITALS: Ht 157.5 cm; Wt 81.6 kg
[~2020-07-27 11:20] MED LIST changes: -ALBU8.5H8 INH; -ALPR1TAB2 PO; -BECL8.7A5 INH; -DEXL60CA4 PO; -DULO60CA41 PO; +GABA300S PO; +LEVO150T PO; -METH25VI29 IM; -METHOT; -PRED10TA PO; +PREN-58 PO; -methotrexate SQ
[2020-07-27 11:42] VITALS: BP_SYST 136
[2020-07-27 12:44] LABS: HEMATOCRIT 23.5 % (36-48); MEAN CORPUSCULAR HEMOGLOBIN 19 pg (27-31); MEAN CORPUSCULAR HGB CONC 30 % (32-36); MEAN CORPUSCULAR VOLUME 66 fL (79.0-98.0); PLATELET COUNT (AUTO) 383 K/uL (130-430); RED BLOOD CELL COUNT(AUTO) 3.57 MIL/uL (4.2-6.2); RED CELL DISTRIBUTION WIDTH 18.3 % (9.0-15.0); WHITE BLOOD COUNT (AUTO) 5.4 K/uL (4.8-10.8)
[2020-07-27 12:49] LABS: HEMOGLOBIN 6.9 g/dL (12.0-16.0)
[2020-07-27 12:55] LABS: CALCIUM 8.2 mg/dL (8.4-11.0); CREATININE 0.7 mg/dL (0.55-1.30); POTASSIUM 3.6 mmol/L (3.5-5.1)
[2020-07-27 13:50] LABS: BAND % (MANUAL) 1 % (0-6); BASOPHILS % (MANUAL) 0 % (0-2); EOSINOPHILS % (MANUAL) 1 % (0-7); LYMPHOCYTES % (MANUAL) 17 % (20-46); MONOCYTES % (MANUAL) 8 % (0-11)
[2020-07-27 14:42] VITALS: BP_SYST 112
[2020-07-27] MEDS ORDERED: ACETAMINOPHEN 325 MG TABLET PO PRN ×2 (16:15→16:30)
[2020-07-27] MEDS ORDERED: ACETAMINOPHEN 325 MG TABLET ONE (16:18)
[2020-07-27] MEDS: MORPHINE 2 MG/ML INJ. SYRINGE IVP PRN ×2 (16:44→21:20)
[2020-07-27 19:49] LABS: TOTAL IRON BIND. CAPACITY 423 ug/dL (250-450)
[2020-07-27 20:00] VITALS: BP_SYST 115
[2020-07-27] MEDS ORDERED: POLYETHYLENE GLYCOL 3350, 17 GM/ POWD.PACK PO ONE (23:45)
[2020-07-28] VITALS: BP_SYST 110
[2020-07-28] MEDS: MORPHINE 2 MG/ML INJ. SYRINGE IVP PRN ×4 (01:39→15:08)
[2020-07-28] MEDS ORDERED: LEVOTHYROXINE SODIUM 0.15 MG TABLET PO SCH (07:00)
[2020-07-28 07:45] VITALS: BP_SYST 107
[2020-07-28 08:47] LABS: BASOPHILS # (AUTO) 0.1 K/uL (0.0-0.2); EOSINOPHILS # (AUTO) 0.2 K/uL (0.0-0.4); EOSINOPHILS % (AUTO) 3.6 % (0.0-4.0); HEMATOCRIT 26.2 % (36-48); LYMPHOCYTES # (AUTO) 1.6 K/uL (1.0-5.5); LYMPHOCYTES % (AUTO) 28.9 % (20.5-51.5); MEAN CORPUSCULAR HEMOGLOBIN 21 pg (27-31); MEAN CORPUSCULAR HGB CONC 31 % (32-36); MEAN CORPUSCULAR VOLUME 68 fL (79.0-98.0); MONOCYTES # (AUTO) 0.5 K/uL (0.0-1.0); MONOCYTES % (AUTO) 8.6 % (1.7-9.3); NEUTROPHILS # (AUTO) 3.2 K/uL (1.8-7.7); PLATELET COUNT (AUTO) 325 K/uL (130-430); RED BLOOD CELL COUNT(AUTO) 3.85 MIL/uL (4.2-6.2); RED CELL DISTRIBUTION WIDTH 20.7 % (9.0-15.0); WHITE BLOOD COUNT (AUTO) 5.6 K/uL (4.8-10.8)
[2020-07-28 08:56] LABS: NEUTROPHILS % (AUTO) 57.9 % (40.0-70.0)
[2020-07-28 12:00] VITALS: BP_SYST 132
[2020-07-28] MEDS ORDERED: methylPREDNISolone SOD SUCC/PF 62.5 MG/ML VIAL IVP SCH (14:00)
[2020-07-28] MEDS ORDERED: metroNIDAZOLE 500 mg/NS 100 ML IV SCH (14:00)
[2020-07-28] MEDS ORDERED: METR500T PO (14:44)
[2020-07-28] MEDS ORDERED: LEVAQUIN PO (14:44)
[2020-07-28] MEDS ORDERED: DOCU-144 PO (14:46)
[2020-07-28] MEDS ORDERED: Iron PO (14:46)
[2020-07-28] MEDS ORDERED: PRED10TA PO (14:47)
[2020-07-28] MEDS ORDERED: CHOLESTYRAMINE/SUCROSE 4 GM/PACKET PO SCH (15:00)
[2020-07-28 15:38] VITALS: BP_SYST 100
[2020-07-28 16:10] VITALS: BP_SYST 132
== END 2020-07-28 16:35 | disposition home or self-care (01) ==
LOC: SED 11:20 → SMU 13:04
PROVIDERS: ADMIT Internal Medicine Hospice and Palliative Medicine; ATTEND Internal Medicine Hospice and Palliative Medicine
DX: D50.9 Iron deficiency anemia, unspecified (principal); Z20.822 Contact with and (suspected) exposure to COVID-19; K50.90 Crohn's disease, unspecified, without complications; M06.9 Rheumatoid arthritis, unspecified; M79.7 Fibromyalgia; J44.9 Chronic obstructive pulmonary disease, unspecified; C14.0 Malignant neoplasm of pharynx, unspecified; Z85.850 Personal history of malignant neoplasm of thyroid; Z79.899 Other long term (current) drug therapy
CPT/HCPCS: 36415 ×2; 36430; 80048; 82272; 82607; 83540; 83550; 84703; 85007; 85025; 85027; 85651; 86140; 86886; 86900; 86901; 86920; 87426; 93005; 96365; 96375 ×2; 96376 ×2; 99284; G0378 ×2; J2270 ×2; J2930; J3490; P9021; J7050

== ENCOUNTER 2022-08-17 12:14 | Emergency (ER) | payer OTHER, MEDICAID ==
[~2022-08-17] VITALS: Ht 157.5 cm; Wt 68.0 kg
[~2022-08-17 12:14] MED LIST changes: +CYM30 PO; +DOCU-144 PO; +FEN12PAT TD; +HYDR-3927 PO; -HYDR-4100 PO; +Iron PO; +LEVAQUIN PO; +METR500T PO; +NEU300 PO; +OXYIR5 PO; +PRED10TA PO; -PREN-58 PO; +[UNRECOGNIZED DRUG - OTHER]
[2022-08-17 12:15] VITALS: BP_SYST 133
--- NOTE | 2022-08-17 12:15 | NUR ---
BROUGHT BACK TO BED #8 AND TRIAGED, REPORT GIVEN TO JOSESITO
--- NOTE | 2022-08-17 12:25 | NUR ---
Patient brought in by daughter from home. Chief Complaint: HX of Anemia with HGB of 6.9 x1w ago, patient treated in ED at [facility] on 08.12.22. Patient states unsure if HGB improved, reports feeling weak, fatigued, and leg pain 7/10 bilaterally. Patient has hx of RA, Fibromyalgia, Chrons, Anemia and Thyroid CA in 2018. Patient reports taking [place], Gabapentin, and Levothyroxine. Patient has hx of Gastric Bypass in 2009, Tubal Ligation 1995, and Thyroidectomy in 2018. LMP is .,PCP is Dr. Carter. Patient is a&ox4 and stable. Bed rails up, VS monitoriing connected.
[2022-08-17] MEDS ORDERED: NACL 0.9% 1,000 ML IV ONE (12:30)
--- NOTE | 2022-08-17 12:30 | NUR ---
ER Dr. Pantoja at bedside examining patient.
[2022-08-17] MEDS ORDERED: MORPHINE 4 MG INJ. 4 MG/ML VIAL IVP ONE (12:45)
--- NOTE | 2022-08-17 12:45 | NUR ---
IV placed at Left AC, blood specimens obtained with lab at bedside, flushed with 5cc of NS, patient denies pain at site, 1000 NS started. Patient tolerated well.
[2022-08-17 12:57] LABS: BASOPHILS # (AUTO) 0.1 K/uL (0.0-0.2); BASOPHILS % (AUTO) 0.8 % (0.0-2.0); EOSINOPHILS # (AUTO) 0.1 K/uL (0.0-0.4); EOSINOPHILS % (AUTO) 1.9 % (0.0-4.0); HEMOGLOBIN 7.7 g/dL (12.0-16.0); LYMPHOCYTES # (AUTO) 1.1 K/uL (1.0-5.5); LYMPHOCYTES % (AUTO) 16.3 % (20.5-51.5); MEAN CORPUSCULAR HEMOGLOBIN 21 pg (27-31); MEAN CORPUSCULAR HGB CONC 30 % (32-36); MEAN CORPUSCULAR VOLUME 69 fL (79.0-98.0); MONOCYTES # (AUTO) 0.3 K/uL (0.0-1.0); MONOCYTES % (AUTO) 4.7 % (1.7-9.3); NEUTROPHILS # (AUTO) 5.2 K/uL (1.8-7.7); NEUTROPHILS % (AUTO) 76.3 % (40.0-70.0); PLATELET COUNT (AUTO) 348 K/uL (130-430); RED BLOOD CELL COUNT(AUTO) 3.77 MIL/uL (4.2-6.2); RED CELL DISTRIBUTION WIDTH 21.4 % (9.0-15.0)
[2022-08-17 13:05] LABS: CALCIUM 8.2 mg/dL (8.4-11.0); CREATININE 0.58 mg/dL (0.55-1.30)
--- NOTE | 2022-08-17 13:09 | NUR ---
OBTAINED MORPHINE 4MG VIAL TO ADMINISTER PER EMAR, CHECKED BP AND NOTED BP TO BE 87/35, RECHECKED AND NOTED AT 95/60. INFORMED MD GALINDO, PER MD, HOLD MORPHINE FOR NOW AND ALLOW NS BOLUS TO FINISH AND REASSESS. IF NEEDED WILL CHANGE MEDICATION.
--- NOTE | 2022-08-17 13:10 | NUR ---
Requested RN for IVP of morphine, RN notified MD of bp, Morphine held. Order changed to Toradol. Yohana RN notified and will IVP.
[2022-08-17 13:15] LABS: WHITE BLOOD COUNT (AUTO) 6.8 K/uL (4.8-10.8)
[2022-08-17] MEDS ORDERED: KETOROLAC TROMETHAMINE 30 MG VIAL IVP ONE (13:15)
[2022-08-17 13:31] LABS: BILIRUBIN,URINE NEGATIVE (NEGATIVE); BLOOD, URINE NEGATIVE (NEGATIVE); COLOR,URINE YELLOW (YELLOW); GLUCOSE,URINE NEGATIVE (NEGATIVE); KETONES,URINE NEGATIVE (NEGATIVE); LEUKOCYTE ESTERASE ,URINE 2+ (NEGATIVE); NITRITE, URINE NEGATIVE (NEGATIVE); PROTEIN URINE NEGATIVE (NEGATIVE)
[2022-08-17 13:32] LABS: CLARITY/URINE HAZY (CLEAR)
[2022-08-17 13:44] LABS: BACTERIA,URINE MODERATE /HPF (None Seen); RBC,URINE 0-3 /HPF (0-3)
--- NOTE | 2022-08-17 14:11 | NUR ---
Pain reassessed post 30mg Toradol IVP, patient reports no improvement. MD notified, advised to proceed with morphine now that BP is higher. Yohana RN administered IVP 4mg of morphine now.
[2022-08-17] MEDS ORDERED: SULF1TAB48 PO (14:44)
--- NOTE | 2022-08-17 15:08 | NUR ---
Patient given written and verbal discharge instructions and verbalizes understanding. ER MD Pantoja discussed with patient the results and treatment provided. Patient in stable condition. ID arm band removed. IV catheter removed intact and dressing applied, no active bleeding. Rx of Bactrim sent to pharmacy on file. Patient educated on pain management and to follow up with PMD. Pain Scale 4/10. Opportunity for questions provided and answered. Medication side effect fact sheet provided. Patient discharged a&ox4 and stable. Patient states has referral to Hematology, patient encouraged to contact for an appointment right away for a plan to manage the Anemia. Patient verbalized understanding.
[2022-08-17 15:15] VITALS: BP_SYST 117
== END 2022-08-17 15:08 | disposition home or self-care (01) ==
LOC: SED 12:14
DX: N39.0 Urinary tract infection, site not specified (principal); D64.9 Anemia, unspecified; R42 Dizziness and giddiness; J44.9 Chronic obstructive pulmonary disease, unspecified; Z88.1 Allergy status to other antibiotic agents; Z88.5 Allergy status to narcotic agent; Z79.899 Other long term (current) drug therapy
CPT/HCPCS: 99284; 96374; 96361; 96375; 80048; 81000; 85025; 87086; 36415; J1885; J2270; J7030

== ENCOUNTER 2023-01-24 11:32 | Inpatient (IN) | payer OTHER, MEDICAID ==
[~2023-01-24] VITALS: Ht 157.5 cm; Wt 68.0 kg
[~2023-01-24 11:32] MED LIST changes: -GABA300S PO; +GABA300S4 PO; +SULF1TAB48 PO
[2023-01-24 12:16] LABS: BASOPHILS # (AUTO) 0.1 K/uL (0.0-0.2); BASOPHILS % (AUTO) 1.2 % (0.0-2.0); EOSINOPHILS # (AUTO) 0.2 K/uL (0.0-0.4); EOSINOPHILS % (AUTO) 3.8 % (0.0-4.0); LYMPHOCYTES % (AUTO) 22.9 % (20.5-51.5); MEAN CORPUSCULAR HEMOGLOBIN 18 pg (27-31); MEAN CORPUSCULAR HGB CONC 29 % (32-36); MEAN CORPUSCULAR VOLUME 63 fL (79.0-98.0); MONOCYTES # (AUTO) 0.3 K/uL (0.0-1.0); MONOCYTES % (AUTO) 6.9 % (1.7-9.3); NEUTROPHILS # (AUTO) 2.9 K/uL (1.8-7.7); NEUTROPHILS % (AUTO) 65.2 % (40.0-70.0); PLATELET COUNT (AUTO) 278 K/uL (130-430); RED BLOOD CELL COUNT(AUTO) 3.18 MIL/uL (4.2-6.2); RED CELL DISTRIBUTION WIDTH 19.7 % (9.0-15.0); WHITE BLOOD COUNT (AUTO) 4.5 K/uL (4.8-10.8)
[2023-01-24 12:26] LABS: ANION GAP 8 (5-15); CARBON DIOXIDE 28 mmol/L (23-29); CHLORIDE 103 mmol/L (98-107); CREATININE 0.52 mg/dL (0.55-1.30); GFR AFRICAN AMERICAN 161 mL/min (>90); GLUCOSE 100 mg/dL (74-106); POTASSIUM 4.8 mmol/L (3.5-5.1); SODIUM SERUM 139 mmol/L (136-145); UREA NITROGEN, BLOOD 10 mg/dL (8-21)
[2023-01-24 12:27] LABS: GFR NON AFRICAN-AMERICAN 133 mL/min (>90); HEMATOCRIT 20.1 % (36-48); HEMOGLOBIN 5.8 g/dL (12.0-16.0)
[2023-01-24 12:29] LABS: INR 0.9 (0.8-1.2); PROTHROMBIN TIME 9.4 SECS (9.5-12.5)
[2023-01-24 12:33] LABS: ALANINE AMINOTRANSFERASE 8 U/L (12-78); ALBUMIN 2.9 g/dL (3.4-4.8); ASPARTATE AMINOTRANSFERASE 15 U/L (10-37); TOTAL BILIRUBIN 0.3 mg/dL (0.0-1.0); TOTAL PROTEIN, SERUM 6.6 g/dL (6.4-8.3)
[2023-01-24 12:39] LABS: ANISOCYTOSIS 1+; HYPOCHROMASIA 1+; OVALOCYTES FEW; TARGET CELLS RARE
[2023-01-24] MEDS ORDERED: fentaNYL CITRATE/PF 100 MCG/2 ML AMP IVP ONE (14:00)
[2023-01-24] MEDS ORDERED: PANTOPRAZOLE SODIUM 40 MG/VIAL (PROTONIX) IVP ONE (15:30)
[2023-01-24] MEDS ORDERED: DIPHENHYDRAMINE INJ 50 MG/ML VIAL ONE (15:56)
[2023-01-24] MEDS ORDERED: DIPHENHYDRAMINE INJ 50 MG/ML VIAL IVP ONE (16:15)
[2023-01-24 16:16] LABS: TOTAL IRON BIND. CAPACITY 316 ug/dL (250-450)
[2023-01-24 20:00] VITALS: BP_SYST 100; PULSE 66; RESP 17; TEMP 97.9; O2SAT 98
[2023-01-24 20:13] VITALS: BP_SYST 104; PULSE 80; RESP 16; TEMP 97.3
[2023-01-24] MEDS ORDERED: GABAPENTIN 100 MG CAPSULE PO ONE (22:45)
[2023-01-25] VITALS: BP_SYST 102; RESP 18; TEMP 98.2; O2SAT 96
[2023-01-25] MEDS: LEVOTHYROXINE SODIUM 0.137 MG TABLET PO SCH (07:00)
[2023-01-25 07:47] VITALS: BP_SYST 95; PULSE 70; RESP 18; TEMP 97.2
[2023-01-25 08:07] LABS: FOLATE (FOLIC ACID) 10.1 ng/mL (>3.0)
[2023-01-25 08:15] VITALS: O2SAT 96
[2023-01-25] MEDS: GABAPENTIN 100 MG CAPSULE PO SCH ×3 (08:44→22:15)
[2023-01-25] MEDS: PANTOPRAZOLE SODIUM 40 MG/VIAL (PROTONIX) IVP SCH (08:45)
[2023-01-25 12:00] VITALS: BP_SYST 98; PULSE 71; RESP 18; TEMP 97.4; O2SAT 96
[2023-01-25] MEDS: SOD FERRIC GLUC COMPLEX/SUC 125 MG in NS 100 ML IV SCH (15:33)
[2023-01-25] MEDS ORDERED: DIPHENHYDRAMINE INJ 50 MG/ML VIAL IM ONE (18:00)
[2023-01-25] MEDS ORDERED: DIPHENHYDRAMINE INJ 50 MG/ML VIAL IV ONE (18:00)
[2023-01-25] MEDS: traMADol HCL HCL 50 MG TABLET (ULTRAM) PO PRN (22:12)
[2023-01-25] MEDS: roPINIRole HCL 0.25 MG ( REQUIP )TABLET PO SCH (22:15)
[2023-01-26] VITALS (7 sets, daily range): BP systolic 100–124; PULSE 70–89; RESP 16–19; TEMP 96.8–98.8; O2SAT 95–96
[2023-01-26] MEDS: traMADol HCL HCL 50 MG TABLET (ULTRAM) PO PRN ×4 (06:01→23:56)
[2023-01-26] MEDS: LEVOTHYROXINE SODIUM 0.137 MG TABLET PO SCH (06:58)
[2023-01-26] MEDS: PANTOPRAZOLE SODIUM 40 MG/VIAL (PROTONIX) IVP SCH (10:08)
[2023-01-26 10:36] LABS: BASOPHILS % (AUTO) 0.6 % (0.0-2.0); EOSINOPHILS # (AUTO) 0.2 K/uL (0.0-0.4); EOSINOPHILS % (AUTO) 3.2 % (0.0-4.0); HEMATOCRIT 31.2 % (36-48); HEMOGLOBIN 9.7 g/dL (12.0-16.0); LYMPHOCYTES # (AUTO) 1.4 K/uL (1.0-5.5); LYMPHOCYTES % (AUTO) 23.9 % (20.5-51.5); MEAN CORPUSCULAR HEMOGLOBIN 23 pg (27-31); MEAN CORPUSCULAR HGB CONC 31 % (32-36); MEAN CORPUSCULAR VOLUME 72 fL (79.0-98.0); MONOCYTES # (AUTO) 0.5 K/uL (0.0-1.0); MONOCYTES % (AUTO) 9.2 % (1.7-9.3); NEUTROPHILS # (AUTO) 3.7 K/uL (1.8-7.7); NEUTROPHILS % (AUTO) 63.1 % (40.0-70.0); PLATELET COUNT (AUTO) 235 K/uL (130-430); RED BLOOD CELL COUNT(AUTO) 4.32 MIL/uL (4.2-6.2); RED CELL DISTRIBUTION WIDTH 26.4 % (9.0-15.0); WHITE BLOOD COUNT (AUTO) 5.8 K/uL (4.8-10.8)
[2023-01-26 11:34] LABS: ALBUMIN 2.9 g/dL (3.4-4.8); CALCIUM 8.3 mg/dL (8.4-11.0); CREATININE 0.48 mg/dL (0.55-1.30); POTASSIUM 3.8 mmol/L (3.5-5.1); TOTAL PROTEIN, SERUM 6.6 g/dL (6.4-8.3)
[2023-01-26] MEDS: GABAPENTIN 100 MG CAPSULE PO SCH ×2 (12:20→15:00)
[2023-01-26] MEDS ORDERED: GABAPENTIN 300 MG CAPSULE PO SCH (15:00)
[2023-01-26] MEDS: SOD FERRIC GLUC COMPLEX/SUC 125 MG in NS 100 ML IV SCH (16:09)
[2023-01-26] MEDS ORDERED: BISACODYL 5 MG TABLET.DR (DULCOLAX) PO ONE (17:00)
[2023-01-26] MEDS ORDERED: DIPHENHYDRAMINE INJ 50 MG/ML VIAL IVP ONE (18:00)
[2023-01-26] MEDS ORDERED: GOLYTELY / COLYTE SOLUTION 4 LITERS PO ONE (18:00)
[2023-01-26] MEDS: roPINIRole HCL 0.25 MG ( REQUIP )TABLET PO SCH (20:30)
[2023-01-26] MEDS: GABAPENTIN 300 MG CAPSULE PO SCH (20:30)
[2023-01-26] MEDS ORDERED: GABAPENTIN 100 MG CAPSULE PO SCH (21:00)
[2023-01-27 01:01] VITALS: BP_SYST 107; PULSE 63; RESP 16; TEMP 98.1; O2SAT 96
[2023-01-27 05:38] LABS: EOSINOPHILS # (AUTO) 0.2 K/uL (0.0-0.4); EOSINOPHILS % (AUTO) 4.1 % (0.0-4.0); HEMOGLOBIN 9.4 g/dL (12.0-16.0); LYMPHOCYTES # (AUTO) 1.5 K/uL (1.0-5.5); LYMPHOCYTES % (AUTO) 29.3 % (20.5-51.5); MEAN CORPUSCULAR HEMOGLOBIN 23 pg (27-31); MEAN CORPUSCULAR HGB CONC 31 % (32-36); MEAN CORPUSCULAR VOLUME 72 fL (79.0-98.0); MONOCYTES # (AUTO) 0.5 K/uL (0.0-1.0); MONOCYTES % (AUTO) 9.2 % (1.7-9.3); NEUTROPHILS # (AUTO) 2.8 K/uL (1.8-7.7); NEUTROPHILS % (AUTO) 56.4 % (40.0-70.0); PLATELET COUNT (AUTO) 214 K/uL (130-430); RED BLOOD CELL COUNT(AUTO) 4.16 MIL/uL (4.2-6.2); RED CELL DISTRIBUTION WIDTH 26.6 % (9.0-15.0)
[2023-01-27 05:50] LABS: PROTHROMBIN TIME 10.4 SECS (9.5-12.5)
[2023-01-27 05:51] LABS: ALBUMIN 2.8 g/dL (3.4-4.8); CALCIUM 8.4 mg/dL (8.4-11.0); CREATININE 0.48 mg/dL (0.55-1.30); TOTAL BILIRUBIN 0.4 mg/dL (0.0-1.0); TOTAL PROTEIN, SERUM 6.3 g/dL (6.4-8.3)
[2023-01-27] MEDS: LEVOTHYROXINE SODIUM 0.137 MG TABLET PO SCH (06:12)
[2023-01-27 08:00] VITALS: BP_SYST 111; PULSE 62; RESP 18; TEMP 97; O2SAT 94
[2023-01-27] MEDS: GABAPENTIN 300 MG CAPSULE PO SCH (08:43)
[2023-01-27] MEDS: PANTOPRAZOLE SODIUM 40 MG/VIAL (PROTONIX) IVP SCH (08:59)
[2023-01-27 10:39] VITALS: O2SAT 96
[2023-01-27] MEDS ORDERED: MEPERIDINE 100 MG INJ. 100 MG/ML VIAL ONE ×2 (12:42→13:02)
[2023-01-27] MEDS ORDERED: MIDAZOLAM HCL 5 MG/5 ML VIAL ONE ×2 (12:42→13:03)
[2023-01-27] MEDS ORDERED: SIMETHICONE 40 MG/0.6 ML ML ONE (12:43)
[2023-01-27] MEDS ORDERED: ONDANSETRON HCL 4 MG/2 ML VIAL ONE (13:05)
[2023-01-27] MEDS ORDERED: DIPHENHYDRAMINE INJ 50 MG/ML VIAL IVP SCH (15:00)
[2023-01-27] MEDS ORDERED: FERR324T11 PO (15:13)
[2023-01-27 15:36] VITALS: BP_SYST 114; PULSE 100; RESP 19; TEMP 98.4; O2SAT 97
[2023-01-27 15:51] VITALS: BP_SYST 114; PULSE 100; RESP 19; TEMP 98.4
[2023-01-27 16:00] VITALS: BP_SYST 96; PULSE 67; RESP 11
[2023-01-27] MEDS ORDERED: EPOETIN ALFA-EPBX 3,000 UNITS/ML VIAL SUBCUT SCH (17:00)
== END 2023-01-27 16:20 | disposition home or self-care (01) | DRG 812 ==
LOC: SED 11:32 → SMU 14:23
PROVIDERS: ADMIT Specialist; ATTEND Specialist
PROC: 30233N1 Transfusion of Nonautologous Red Blood Cells into Peripheral Vein, Percutaneous Approach (ICD-10-PCS; 2023-01-24)
PROC: 0DBE8ZX Excision of Large Intestine, Via Natural or Artificial Opening Endoscopic, Diagnostic (ICD-10-PCS; 2023-01-27)
PROC: 0DBA8ZX Excision of Jejunum, Via Natural or Artificial Opening Endoscopic, Diagnostic (ICD-10-PCS; principal; 2023-01-27 12:00)
PROC: 0DB68ZX Excision of Stomach, Via Natural or Artificial Opening Endoscopic, Diagnostic (ICD-10-PCS; 2023-01-27 12:00)
DX: D50.8 Other iron deficiency anemias (principal); E44.0 Moderate protein-calorie malnutrition; K29.70 Gastritis, unspecified, without bleeding; M06.9 Rheumatoid arthritis, unspecified; K64.8 Other hemorrhoids; M79.7 Fibromyalgia; G25.81 Restless legs syndrome; E88.09 Other disorders of plasma-protein metabolism, not elsewhere classified; J44.9 Chronic obstructive pulmonary disease, unspecified; N18.9 Chronic kidney disease, unspecified; Z88.5 Allergy status to narcotic agent; Z79.899 Other long term (current) drug therapy; Z98.84 Bariatric surgery status; Z85.850 Personal history of malignant neoplasm of thyroid; Z68.27 Body mass index [BMI] 27.0-27.9, adult
CPT/HCPCS: 36415; 43239; 45380; 71045; 80053; 82272; 82550; 82607; 82728; 82746; 83010; 83540; 83550; 83874; 84484; 85025; 85044; 85610-TC; 85730-TC; 86886; 86900; 86901; 86920; 88305; 88312; 88313; 93005; 96374; 96375; 97163-GP; 99291; C9113; J1200; J2175; J2250; J2405; J2916; J3010; J7040; J7050; J7060; P9021; Q5106

== ENCOUNTER 2023-05-23 10:17 | Emergency (ER) | payer OTHER, MEDICAID ==
[~2023-05-23] VITALS: Ht 157.5 cm; Wt 68.0 kg
[~2023-05-23 10:17] MED LIST changes: -CYM30 PO; -DOCU-144 PO; +FERR324T11 PO; -GABA300S4 PO; -Iron PO; -LEVAQUIN PO; -LEVO150T PO; -METR500T PO; -PRED10TA PO; -SULF1TAB48 PO
[2023-05-23 10:25] VITALS: BP_SYST 101; RESP 17; TEMP 98.3; O2SAT 98
[2023-05-23] MEDS ORDERED: ALBMDI INH (11:54)
[2023-05-23] MEDS ORDERED: BROM118S61 PO (11:54)
[2023-05-23] MEDS ORDERED: ZIT250 PO (11:54)
[2023-05-23] MEDS ORDERED: PRED50TA PO (11:54)
== END 2023-05-23 12:20 | disposition home or self-care (01) ==
LOC: SED 10:17
DX: J44.9 Chronic obstructive pulmonary disease, unspecified (principal); J06.9 Acute upper respiratory infection, unspecified; R05.9 Cough, unspecified; R09.81 Nasal congestion; Z88.1 Allergy status to other antibiotic agents; Z88.5 Allergy status to narcotic agent; Z79.899 Other long term (current) drug therapy
CPT/HCPCS: 71045; 99283